=== PATIENT | male | born 1980 | race Caucasian/White ===

== ENCOUNTER 2017-05-29 17:08 | Emergency (ER) | payer OTHER ==
[~2017-05-29] VITALS: Ht 185.4 cm; Wt 95.9 kg
[2017-05-29] MEDS ORDERED: LISI1TAB3 PO (17:20)
[2017-05-29] MEDS ORDERED: SODIUM CHLORIDE 0.9% 1,000ML IVBOLUS ONE (18:00)
[2017-05-29 18:18] LABS: BLOOD UREA NITROGEN 15 mg/dL (7-18)
[2017-05-29 18:44] VITALS: BP 100/62
== END 2017-05-29 18:46 | disposition home or self-care (01) ==
LOC: ED 18:40
DX: E87.6 Hypokalemia (principal)
CPT/HCPCS: 36415; 80048; 82040; 85025; 93005; 96360; 99285; J7030